=== PATIENT | male | born 1930 | race Caucasian/White ===

== ENCOUNTER 2017-07-26 11:08 | Inpatient (IN) | payer MEDICARE ==
[~2017-07-26] VITALS: Ht 172.7 cm; Wt 85.7 kg
[~2017-07-26 11:08] MED LIST: ACEBUTOLOL HCL400 MG PO; ALLERGY RELIE15.8 ML NS; AMLODIPINE BESYL5 MG PO; AMOXICILLIN-CL1 EACH PO; ASPIR 8181 MG PO; B-12 DOTS500 MCG PO; CALCIUM500 M1 PO; COUMADIN5 MG PO; DONEPEZIL HCL10 MG PO; DOXAZOSIN MESYLA8 MG PO; FLOVENT DISKUS50 MCG INH; GABAPENTIN100 MG PO; HORSE CHESTNUT300 MG PO; K-TAB ER20 MEQ PO; LISINOPRIL-HCT1 EAC1 PO; LISINOPRIL20 MG PO; MACUVITE EYE C1 EACH PO; MEN 50 PLUS MU1 EACH PO; METHOCARBAMOL750 MG PO; NAMENDA XR28 MG PO; OMEGA 3 1,0001 EACH PO; OMEGA-3 FISH O1 EAC4 PO; OMEPRAZOLE20 MG PO; PRENATAL VITAM1 EAC3 PO; PROBIOTIC1 EAC1 PO; TRIAMTERENE-HC1 EAC1 PO; WARFARIN SODIU2.5 MG PO; WARFARIN SODIU7.5 MG PO
--- NOTE | 2017-07-26 16:32 | EKG ---
[facility] [address] [facility] [place] [address] Signed Ventricular-paced rhythm Abnormal ECG When compared with ECG of 17-NOV-2016 18:58, Vent. rate has decreased BY 6 BPM Confirmed by NENA SANTOS MD ([id number]) on 07/26/2017 4:32:07 PM Electronically Signed By: NENA SANTOS MD 07/26/17 1632 PATIENT NAME: SMITAJORDAN BASIL Electrocardiogram DATE OF : 34 PHYSICIAN: NENA SANTOS MD REPORT #: [id number] REPORT IS CONFIDENTIAL AND NOT TO BE RELEASED WITHOUT AUTHORIZATION
--- NOTE | 2017-07-28 06:26 | CONS ---
[facility] [address] [place], [place] [address] Signed DATE OF CONSULTATION: 07/27/2017 CHIEF COMPLAINT: Right-sided chest pain. HISTORY OF PRESENT ILLNESS: Shyam is an 86-year-old gentleman who has been on Coumadin and aspirin for history of chronic atrial fibrillation and a left subclavian pacemaker. He developed anemia earlier in the year from around 11.7 down to the level just over 8. He was taken off his Coumadin and his aspirin. He seemed to maintain his hemoglobin about that level. He had been in to [facility] in February 2017. He ended up with a colonoscopy and it showed significantly ischemic sigmoid colitis. The pathology proved this to be ischemic tissue. He has been discharged and went back to see Dr. Richy Cotton and had a repeat colonoscopy earlier in June 2017, that was said to be benign per the notes of the primary care provider. In the meantime, he stayed off his anticoagulation, but developed right-sided chest wall pain while seeing his orthopedic surgeon here in [place]. He therefore was sent over to the emergency room. Chest x-ray showed the markings in the right mid lung and a CT scan showed several small pulmonary emboli and maybe an infiltrate. Consequently, he was admitted to the internal medicine service and started on azithromycin and Rocephin. Because of his significant medical disabilities and his recent evaluation for his anemia, he was given 2 units of packed red blood cells. It seems a reasonable choice at this time. He is in need of his Lovenox currently, and he is already low on his hemoglobin at 8.1. In the meantime, he is in our ICU and seems to be doing well. I was asked to see him as a general surgeon on-call to be available in case he would need upper or lower endoscopy. PAST MEDICAL HISTORY: Diverticulosis, pulmonary embolism, pneumonia, atrial fibrillation, coronary artery disease, peripheral edema, hypertension, anemia, dementia, Peng esophagus, hiatal hernia, benign prostatic hyperplasia, macular degeneration, scalp melanoma in 2003, vitamin K deficiency, and lumbago. PAST SURGICAL HISTORY: Includes a colonoscopy in February [address] Richy Cotton with severe sigmoid ischemic colitis, possibly small polyps and also diverticulosis. Repeat colonoscopy with Dr. Cotton in June 2017 was unremarkable. He has had an appendectomy, a left subclavian pacemaker in 2007, left hip replacement, nasal polyps, and then his back surgery in September 2016. SOCIAL HISTORY: He quit smoking. He has a drink about once a week. He lives with his , Ashly jiang in [place] in their house. She continues to drive, but he does not. Abdi Stevens is his son at [phone] and [id number], Balbir at [phone]. Shyam generally uses a Electronically Signed By: ENRIQUE EDEN MD 07/28/17 0626 PATIENT NAME: SHYAM STEVENS CONSULTATION DATE OF : 34 PHYSICIAN: ENRIQUE EDEN MD REPORT #: [id number] REPORT IS CONFIDENTIAL AND NOT TO BE RELEASED WITHOUT AUTHORIZATION [address] [address] Signed wheelchair, but his helps him get on and off the toilet and in and out of the bathtub and so forth. PRIMARY CARE PROVIDER: Jorje Pope MD. ORTHOPEDIC SURGEON: Kole Ndiaye MD. FAMILY HISTORY: Not reviewed. REVIEW OF SYSTEMS: Not reviewed. ALLERGIES: Morphine. MEDICATIONS: Acebutolol, amlodipine, aspirin, vitamin B, calcium, vitamin D, calcium, Aricept, doxazosin, Flonase, Neurontin, Namenda XR, multivitamin, Prilosec, oxybutynin, potassium chloride, tramadol, Maxzide, and Coumadin. PHYSICAL EXAMINATION: VITAL SIGNS: Blood pressure is 125/53, heart rate 60 and ventricularly paced, respiratory rate 12. He is 97% on room air. GENERAL: Shyam is an 86-year-old gentleman who appears alert, awake, and interactive. He has some kyphosis, sitting in his chair at the bedside. His daughter and his son are in the room. For his dementia, he actually is a pretty good historian. LUNGS: Generally clear to auscultation bilaterally. HEART: Paced. ABDOMEN: Soft, nontender. RECTAL: Not performed. LABORATORY DATA: His white blood cell count is 4.8, his neutrophils are 67; hemoglobin is 8.1, it is up to 9.3 after 2 units of packed red blood cells. Mean cell volume is 101. BUN 22, creatinine 1.14, glucose 112. Liver function tests negative. Troponin 0.295. D-dimer greater than 5000. Albumin is 3.4. INR 1. RADIOGRAPHIC STUDIES: Chest x-ray shows right mid lung markings and the CT scan of the chest shows several right-sided pulmonary emboli and some edema and/or infiltrate on the right side. Electronically Signed By: ENRIQUE EDEN MD 07/28/17 0626 PATIENT NAME: SHYAM STEVENS CONSULTATION DATE OF : 34 PHYSICIAN: ENRIQUE EDEN MD REPORT #: [id number] REPORT IS CONFIDENTIAL AND NOT TO BE RELEASED WITHOUT AUTHORIZATION [facility] [address] [place], [place] [address] Signed ASSESSMENT AND PLAN: Shyam is an 86-year-old gentleman who presents with right-sided pulmonary emboli whether or not he has pneumonia is hard to know, he is on antibiotics. He also has had some recent anemia and been off the aspirin and Coumadin with sigmoid ischemic colitis in September 2016. From what I have read, he did not undergo an upper endoscopy. At this point, he is on Lovenox and I have been asked to follow him as a general surgeon internal corrosion specialist. We can certainly do that. When he is more stable, he might consider an upper endoscopy and if that is negative, he could always do a capsule endoscopy and if those were all negative, he could consider resuming his Coumadin. I have explained this to Shyam and his family. They have expressed understanding and agreed to above plan. Enrique Eden MD ALB/TALIAL /[id number] cc: MD Lavelle London MD Electronically Signed By: ENRIQUE EDEN MD 07/28/17 0626 PATIENT NAME: SHYAM STEVENS CONSULTATION DATE OF : 34 PHYSICIAN: ENRIQUE EDEN MD REPORT #: [id number] REPORT IS CONFIDENTIAL AND NOT TO BE RELEASED WITHOUT AUTHORIZATION
[2017-07-29] MEDS ORDERED: POTASSIUM CHLO20 ME1 PO (15:50)
[2017-07-29] MEDS ORDERED: AMLODIPINE BESY10 MG PO (15:50)
[2017-07-29] MEDS ORDERED: TRIAMTERENE-HC1 EAC1 PO (15:52)
--- NOTE | 2017-07-30 07:41 | OR ---
[facility] [address] [place], [place] [address] Signed DATE OF OPERATION: 07/29/2017 SURGEON: Enrique Eden MD PREOPERATIVE DIAGNOSIS: Anemia. POSTOPERATIVE DIAGNOSIS: Multiple diffuse benign gastric polyps. PROCEDURE: EGD with SIOBHAN test and biopsies of the antrum. ESTIMATED BLOOD LOSS: None. FINDINGS: No source of bleeding. INDICATIONS: Shyam is an 86-year-old, significantly debilitated gentleman with a history of atrial fibrillation and coronary artery disease with a pacemaker in place. He also has peripheral edema. Apparently, he has been said to have a hiatal hernia with Peng esophagus in the past. Amazingly, he still lives in the house with his . She does an excellent job taking care of him. Earlier this year, he was noted to be anemic. He had been taken off his Coumadin and his aspirin and ended up at [facility]. He had pain in left lower quadrant. He underwent a colonoscopy with Dr. Richy Cotton and had severe ischemic sigmoid colitis in February of 2017. He eventually recovered with discharged to home and went back about 4 weeks ago for an outpatient followup colonoscopy. According to the family that was fine. However, he developed right chest wall pain and ended up in our emergency room. Of course, he is still anemic with a hemoglobin around 8.1. Chest x-ray showed some right mid lung markings and a CT scan of the chest confirmed several PE in the right side with some surrounding infiltrate. He was therefore admitted to our internal medicine service and started on antibiotics and his Lovenox. In the meantime, he has been hemodynamically stable. He did receive some blood per our Internal Medicine Service, because his overall disability and the need to increase his oxygen carrying capacity. I have been asked to see general surgeon on-call to see him for upper endoscopy. He has been stable now for over 24 hours, so we decided we would bring him down with our anesthesia provided for the upper endoscopy. I explained the procedure to Shyam and his family. They understand there is risk Electronically Signed By: ENRIQUE EDEN MD 07/30/17 0741 PATIENT NAME: SHYAM ORDOÑEZ OPERATIVE REPORT DATE OF : 34 PHYSICIAN: ENRIQUE EDEN MD REPORT #: [id number] REPORT IS CONFIDENTIAL AND NOT TO BE RELEASED WITHOUT AUTHORIZATION [facility] [address] [place] [id number] Signed including, but not limited to gas, bloating, crampy abdominal pain, bleeding, perforation, requiring surgery, and missed diagnosis. They expressed understanding and wished to proceed. PROCEDURE NOTE: Shyam was taken into our endoscopy suite and placed in the supine semi-recumbent position. He was given IV sedation with propofol per nurse shipping checker. As expected, he has a very slow circulation time for his drugs. The adult gastroscope was introduced and advanced under direct visualization into the third portion of the duodenum under direct visualization of camera without difficulty. The duodenum and pyloric channel were unremarkable. The stomach showed diffuse benign gastric polyps consistent with the using of proton pump inhibitor. There was no evidence of any old or new bleeding. There was no ulcerations, no inflammation whatsoever. Upon retroflexion of scope, he may have just a very small hiatal hernia. There was no gastric or esophageal varices. The scope was withdrawn up to the area of the GE junction, which was compliant without stricture. He has minimal disruption at the Z-line. I did not see any Peng esophagus. The distal middle and upper esophagus were unremarkable. After this, the gas was suctioned out, the gastroscope removed. Shyam tolerated the procedure quite well. RECOMMENDATIONS: Shyam will be returned to his ICU bed and his preop orders will be resumed. Currently, no source of bleeding found. He could always consider a small bowel followthrough or an outpatient capsule endoscopy. Enrique Eden MD ALB/MODL /[id number] cc: Enrique Eden MD Electronically Signed By: ENRIQUE EDEN MD 07/30/17 0741 PATIENT NAME: SHYAM ORDOÑEZ OPERATIVE REPORT DATE OF : 34 PHYSICIAN: ENRIQUE EDEN MD REPORT #: [id number] REPORT IS CONFIDENTIAL AND NOT TO BE RELEASED WITHOUT AUTHORIZATION [facility] [address] [place], [place] [address] Signed T MD Richy Cox MD Electronically Signed By: ENRIQUE EDEN MD 07/30/17 0741 PATIENT NAME: SMITASHYAM BASIL OPERATIVE REPORT DATE OF : 34 PHYSICIAN: ENRIQUE EDEN MD REPORT #: [id number] REPORT IS CONFIDENTIAL AND NOT TO BE RELEASED WITHOUT AUTHORIZATION
[2017-08-05] MEDS ORDERED: LISINOPRIL20 MG PO (12:01)
[2017-08-06] MEDS ORDERED: COUMADIN5 MG PO (15:39)
== END 2017-08-05 13:35 | disposition home or self-care (01) | DRG 175 ==
LOC: ED 11:08 → MS 14:52 → CCU 14:52 → MS 07-29 11:55
PROVIDERS: ADMIT Internal Medicine
PROC: 0DB78ZX Excision of Stomach, Pylorus, Via Natural or Artificial Opening Endoscopic, Diagnostic (ICD-10-PCS; principal; 2017-07-30)
DX: I26.99 Other pulmonary embolism without acute cor pulmonale (principal); J18.9 Pneumonia, unspecified organism; D61.818 Other pancytopenia; K92.2 Gastrointestinal hemorrhage, unspecified; K55.9 Vascular disorder of intestine, unspecified; N17.9 Acute kidney failure, unspecified; D64.9 Anemia, unspecified; R53.81 Other malaise; I10 Essential (primary) hypertension; K21.9 Gastro-esophageal reflux disease without esophagitis; Z95.0 Presence of cardiac pacemaker; K31.7 Polyp of stomach and duodenum; I48.2 Chronic atrial fibrillation; Z79.01 Long term (current) use of anticoagulants; I25.10 Atherosclerotic heart disease of native coronary artery without angina pectoris; N40.0 Benign prostatic hyperplasia without lower urinary tract symptoms; M54.5 Low back pain; F03.90 Unspecified dementia, unspecified severity, without behavioral disturbance, psychotic disturbance, mood disturbance, and anxiety; G31.84 Mild cognitive impairment of uncertain or unknown etiology; M06.9 Rheumatoid arthritis, unspecified
CPT/HCPCS: 00740; 36415; 36430; 71010; 71260; 80048; 80053; 82378; 83735; 84100; 84484; 85018; 85025; 85379; 85610; 86677; 86850; 86900; 86901; 86920; 88305; 92610; 93005; 93010; 94760; 97110; 97162; 97165; 97530; J0456; J0696; J1650; J2250; J2704; J3010; J3475; J3480; J7030; J7060; J7120; P9016; Q9967